=== PATIENT | female | born 1995 | race Caucasian/White ===

== ENCOUNTER → 2018-09-06 | Outpatient (CLI) | payer OTHER | END | disposition home or self-care (01) | LOC: RAD 17:26 | PROVIDERS: ATTEND Physician Assistant | DX: Q65.89 Other specified congenital deformities of hip (principal); M25.552 Pain in left hip ==

== ENCOUNTER 2021-01-31 10:45 | Outpatient (CLI) | payer OTHER ==
[~2021-01-31 10:45] MED LIST: CALC-534 PO; DICL50TA2 PO
[2021-01-31] MEDS ORDERED: OMNIPAQUE 300 MG/ML, 10ML VIAL ONE (11:00)
[2021-01-31] MEDS ORDERED: GADOTERATE 5 MMOL/10 ML VIAL ONE (11:00)
[2021-01-31] MEDS ORDERED: LIDOCAINE 1%, 10ML ONE ×2 (11:04→11:26)
== END 2021-01-31 23:59 | disposition home or self-care (01) ==
LOC: RAD 10:45
PROVIDERS: ATTEND Physician Assistant Surgical
DX: M25.552 Pain in left hip (principal); M84.352A Stress fracture, left femur, initial encounter for fracture; X58.XXXA Exposure to other specified factors, initial encounter; Y93.89 Activity, other specified; Y92.89 Other specified places as the place of occurrence of the external cause; Y99.8 Other external cause status
CPT/HCPCS: 27093; 73525; 73722; A9575; J3490; Q9967